=== PATIENT | female | born 1950 | race Caucasian/White ===

== ENCOUNTER 2023-11-15 11:21 | Day surgery (SDC) | payer MEDICARE ==
[~2023-11-15] VITALS: Ht 177.8 cm; Wt 93.9 kg
[~2023-11-15 11:21] MED LIST: ANACIN PO; EPINEPhrine HCl 1 MG/ML 1ML Amp ONE; Ropivacaine 0.5% HCl/Pf 5 MG/ML 20ML VIAL ONE
[2023-11-15] MEDS ORDERED: CeFAZolin Sodium 2,000 MG VIAL ONE (11:28)
[2023-11-15] MEDS ORDERED: NS 50 ML IV ONE (11:29)
[2023-11-15] MEDS ORDERED: Lactated Ringer's 1,000 ML IV ONE (11:58)
[2023-11-15] MEDS ORDERED: propofoL 20 ML IV ONE (13:36)
[2023-11-15] MEDS ORDERED: FentaNYL Citrate 50 MCG/ML 2 ML Injection ONE (13:36)
[2023-11-15] MEDS ORDERED: EPINEPhrine HCl 1 MG/ML 1ML Amp XX ONE (13:50)
--- NOTE | 2023-11-15 13:53 | NUR ---
11/15/23 1353 Leigh Dupree ROPIVACAINE 0.5% 30 ML MIXED & VERIFIED W/ EPI 0.15ML (1MG/ML) PER ODRER, TO MAKE ROPIVACAINE 0.5% 1:200,000 FOR INJECTION AT OPSITE. 30 ML INJECTED.
[2023-11-15] MEDS ORDERED: Ondansetron HCl 2 MG / ML 2ML Vial ONE (13:59)
[2023-11-15] MEDS ORDERED: Dexamethasone Sod Phos 10 MG/ML 1ML VIAL ONE (13:59)
[2023-11-15 14:56] VITALS: BP 111/71
== END 2023-11-15 16:10 | disposition home or self-care (01) ==
LOC: ORSCSDS 11:21
PROVIDERS: Podiatrist Foot & Ankle Surgery
PROC: 0QP104Z Removal of Internal Fixation Device from Sacrum, Open Approach (ICD-10-PCS; principal; 2023-11-15 12:45)
DX: T84.84XA Pain due to internal orthopedic prosthetic devices, implants and grafts, initial encounter (principal); M79.672 Pain in left foot; M89.372 Hypertrophy of bone, left ankle and foot; G62.9 Polyneuropathy, unspecified; Z87.891 Personal history of nicotine dependence
CPT/HCPCS: J0171; J0690; J1100; J2405; J2704; J2795; J3010

== ENCOUNTER → 2025-02-03 | Outpatient (CLI) | payer SELFPAY ==
[~2025-02-03] MED LIST changes: -EPINEPhrine HCl 1 MG/ML 1ML Amp ONE; -Ropivacaine 0.5% HCl/Pf 5 MG/ML 20ML VIAL ONE
== END ==
LOC: LAB SHORT 10:13 → LAB 10:13
DX: C44.1192 Basal cell carcinoma of skin of left lower eyelid, including canthus (principal)
CPT/HCPCS: 88305